=== PATIENT | male | born 1955 | race Caucasian/White ===

== ENCOUNTER → 2019-12-06 | Outpatient (CLI) | payer BC, OTHER ==
[~2019-12-06] MED LIST: ADVIL FLU & BO1 EACH PO; ENDOCET 5-3251 EACH PO; LISINOPRIL5 MG PO; NORCO 10-325 T1 EACH PO; ROBAXIN 750 MG750 M1; TRICOR PO
== END ==
LOC: SJCVCIMAG 11:17
PROVIDERS: ATTEND Internal Medicine Cardiovascular Disease
DX: I87.2 Venous insufficiency (chronic) (peripheral) (principal); F17.200 Nicotine dependence, unspecified, uncomplicated

== ENCOUNTER → 2019-12-13 | Outpatient (CLI) | payer BC, OTHER ==
[~2019-12-13] VITALS: Ht 193 cm; Wt 145.1 kg
[~2019-12-13] MED LIST changes: +AMBIEN 5 MG TABL5 M1 PO; +CHILDREN'S ZYRT10 M1 PO; +LIPITOR 20 MG T20 M1 PO; +OLMESARTAN-HCT1 EAC2 PO; +PROAIR HFA8.5 GM INH
[2019-12-13 13:18] VITALS: BP 138/71
[2019-12-13 14:03] LABS: HEMATOCRIT 40.9 % (42.0-52.0); MCH 37.6 pg (26.0-34.0); MCHC 34.2 g/dL (28.0-37.0); MCV 109.9 fL (80.0-100.0); RBC 3.72 mil/uL (4.50-6.00); RDW 14.1 % (10.5-14.5)
[2019-12-13 14:12] LABS: POTASSIUM 3.6 mmol/L (3.5-5.1)
== END | disposition home or self-care (01) ==
LOC: CATH
PROVIDERS: ATTEND Nuclear Medicine Nuclear Cardiology
DX: I87.1 Compression of vein (principal); I87.323 Chronic venous hypertension (idiopathic) with inflammation of bilateral lower extremity; R22.43 Localized swelling, mass and lump, lower limb, bilateral; I10 Essential (primary) hypertension; I25.10 Atherosclerotic heart disease of native coronary artery without angina pectoris; J44.9 Chronic obstructive pulmonary disease, unspecified; E78.00 Pure hypercholesterolemia, unspecified; E66.09 Other obesity due to excess calories; F17.210 Nicotine dependence, cigarettes, uncomplicated; Z98.890 Other specified postprocedural states; Z79.899 Other long term (current) drug therapy

== ENCOUNTER → 2019-12-20 | Outpatient (CLI) | payer BC, OTHER | LOC: SJCVCIMAG 09:17 | PROVIDERS: ATTEND Internal Medicine Cardiovascular Disease | DX: I45.10 Unspecified right bundle-branch block (principal); I11.9 Hypertensive heart disease without heart failure; I25.10 Atherosclerotic heart disease of native coronary artery without angina pectoris; R93.1 Abnormal findings on diagnostic imaging of heart and coronary circulation; J44.9 Chronic obstructive pulmonary disease, unspecified; E78.5 Hyperlipidemia, unspecified; F17.200 Nicotine dependence, unspecified, uncomplicated; Z82.49 Family history of ischemic heart disease and other diseases of the circulatory system; Z79.899 Other long term (current) drug therapy ==

== ENCOUNTER → 2020-02-28 | Outpatient (CLI) | payer BC, OTHER | LOC: SJCVCIMAG 08:25 | PROVIDERS: ATTEND Internal Medicine Cardiovascular Disease | DX: I87.2 Venous insufficiency (chronic) (peripheral) (principal); I87.8 Other specified disorders of veins; M79.89 Other specified soft tissue disorders; Z95.820 Peripheral vascular angioplasty status with implants and grafts; Z79.899 Other long term (current) drug therapy ==